=== PATIENT | female | born 1935 | race Caucasian/White ===

== ENCOUNTER 2018-04-26 10:43 | Day surgery (SDC) | payer OTHER ==
[~2018-04-26] VITALS: Ht 185.4 cm; Wt 78.5 kg
[~2018-04-26 10:43] MED LIST: ARICEPT10 MG PO; ENALAPRIL MALEA10 MG PO; LEVO-T125 MCG PO; VERAPAMIL ER120 MG PO
== END 2018-04-26 16:30 | disposition home or self-care (01) ==
LOC: CIR.AMB 10:43
DX: C65.2 Malignant neoplasm of left renal pelvis (principal)

== ENCOUNTER 2018-06-06 12:37 | Outpatient (CLI) | payer OTHER | END 2018-06-06 13:00 | disposition home or self-care (01) | LOC: NUCLEAR 12:37 | DX: C65.2 Malignant neoplasm of left renal pelvis (principal) | CPT/HCPCS: 78708; A9539; J1940 ==

== ENCOUNTER 2018-12-02 08:04 | Outpatient (CLI) | payer OTHER | END 2018-12-02 08:20 | disposition home or self-care (01) | LOC: LAB 08:04 | DX: C65.2 Malignant neoplasm of left renal pelvis (principal); C67.9 Malignant neoplasm of bladder, unspecified ==

== ENCOUNTER → 2019-03-29 10:39 | Outpatient (CLI) | payer OTHER | END | disposition home or self-care (01) | LOC: RAD 10:39 → LAB 10:39 | DX: C67.4 Malignant neoplasm of posterior wall of bladder (principal) ==

== ENCOUNTER 2019-04-11 07:20 | Day surgery (SDC) | payer OTHER | END 2019-04-11 17:10 | disposition home or self-care (01) | LOC: CIR.AMB 07:20 → EDSTATUS 11:00 → SURG 11:00 → CIR.AMB 11:00 | DX: C67.0 Malignant neoplasm of trigone of bladder (principal); C67.4 Malignant neoplasm of posterior wall of bladder; C67.5 Malignant neoplasm of bladder neck ==

== ENCOUNTER 2019-04-16 07:40 | Outpatient (CLI) | payer OTHER | END 2019-04-16 07:45 | disposition home or self-care (01) | LOC: LAB 07:40 | DX: C23 Malignant neoplasm of gallbladder (principal) ==

== ENCOUNTER 2019-05-02 08:12 | Outpatient (CLI) | payer OTHER | END 2019-05-02 08:17 | disposition home or self-care (01) | LOC: LAB 08:12 | DX: C67.8 Malignant neoplasm of overlapping sites of bladder (principal) ==